=== PATIENT | female | born 1955 | race Caucasian/White ===

== ENCOUNTER → 2022-10-13 16:51 | Outpatient (BNVA) | payer OTHER, SELFPAY | PROVIDERS: PCP Family Medicine; Visit Provider Internal Medicine Cardiovascular Disease | DX: Z79.01 Long term (current) use of anticoagulants (principal); R00.2 Palpitations; R06.02 Shortness of breath | CPT/HCPCS: 36415; 80048; 84443; 85025 ==

== ENCOUNTER → 2022-10-14 09:52 | Outpatient (BNVA) | payer MEDICARE, SELFPAY | PROVIDERS: PCP Family Medicine; Visit Provider Internal Medicine Rheumatology | DX: M19.90 Unspecified osteoarthritis, unspecified site (principal); Z79.899 Other long term (current) drug therapy; M45.6 Ankylosing spondylitis lumbar region; Z11.59 Encounter for screening for other viral diseases; Z87.828 Personal history of other (healed) physical injury and trauma; Z84.0 Family history of diseases of the skin and subcutaneous tissue; M76.61 Achilles tendinitis, right leg; M76.62 Achilles tendinitis, left leg; M54.89 Other dorsalgia; Z11.1 Encounter for screening for respiratory tuberculosis | CPT/HCPCS: 72040; 72202; 73130; 73562; 73630; 99204 ==

== ENCOUNTER 2022-10-18 12:16 | Outpatient (CLI) | payer MEDICARE, SELFPAY ==
--- NOTE | 2022-10-18 12:15 | USCV_ITS ---
Patricia Charlton Age: 67 Gender: F : 1955 Exam Date: 10/18/2022 12:44 Ordering Phys: Esau Maher MD ([email or web address]) Technologist: ZAKIA Exam Location: [facility] [place] Indication: heart murmur BP: 157 / 97 HR: 50 Rhythm: Sinus Technical Quality: Adequate MEASUREMENTS (Male / Female) Normal Values 2D ECHO LV Diastolic Diameter PLAX 4.2 cm 4.2 - 5.9 / 3.9 - 5.3 cm LV Systolic Diameter PLAX 2.4 cm IVS Diastolic Thickness 0.8 cm 0.6 - 1.0 / 0.6 - 0.9 cm IVS Systolic Thickness 0.9 cm LVPW Diastolic Thickness 1.1 cm 0.6 - 1.0 / 0.6 - 0.9 cm LVPW Systolic Thickness 1.1 cm LVOT Diameter 2.0 cm LV Ejection Fraction 2D Teich 74.7 % LV Ejection Fraction MOD 2C 59.7 % LV Ejection Fraction 2C AL 58.9 % LA Diameter 3.2 cm LA Width 2.5 cm LA Height 4.3 cm RA Width 3.0 cm RA Height 4.2 cm Aorta at Sinotubular Diameter 2.4 cm IVC Diameter 1.4 cm M-MODE Aortic Annulus Diameter 2.7 cm LA Ao Ratio MM 1.1 MV E Point Septal Separation 0.6 cm DOPPLER AV Peak Velocity 151.0 cm/s LVOT Peak Velocity 121.0 cm/s AV Area Cont Eq vti 2.7 cm squared AV Area Cont Eq pk 2.5 cm squared MV Peak Velocity 75.0 cm/s MV Area PHT 6.3 cm squared Mitral E to A Ratio 1.1 MV E' Velocity 37.0 cm/s Mitral E to MV E' Ratio 6.6 Mitral E to LV E' Lateral Ratio 6.8 Mitral E to LV E' Septal Ratio 6.4 TR Peak Velocity 336.4 cm/s TR Peak Gradient 45.3 mmHg TR Mean Velocity 248.8 cm/s TR Mean Gradient 27.1 mmHg TR Velocity Time Integral 89.7 cm Right Atrial Pressure 3.0 mmHg Pulmonary Artery Systolic Pressu 48.3 mmHg PV Peak Velocity 93.0 cm/s RV Acceleration Time 0.2 s RV Ejection Time 0.3 s RV AcT/ET 0.5 FINDINGS Left Ventricle Normal left ventricular size and systolic function, EF 65 %. No regional wall motion abnormalities. Right Ventricle The right ventricle is normal in size and function. Right Atrium The right atrium is normal in size. Left Atrium The left atrium is normal in size. Mitral Valve Mild mitral valve regurgitation. Aortic Valve Trace to mild aortic valve regurgitation. Echodensity in the noncoronary cusp of the aortic leaflet Tricuspid Valve Mild tricuspid valve regurgitation. Pulmonic Valve No gross abnormalities noted Pericardium Normal pericardium without effusion. Aorta Normal ascending aorta dimension. IVC Normal inferior vena cava. CONCLUSIONS Normal left ventricular size and systolic function, EF 65 %. No regional wall motion abnormalities. Mild mitral valve regurgitation. Echodensity in the noncoronary cusp of the aortic leaflet, size calcified lesion Trace to mild aortic valve regurgitation. Mild mitral and tricuspid regurgitation Estimated pulmonary artery peak systolic pressure of 48 mmHg. There is no pericardial effusion. Dr Esau Maher MD FAC (Electronically Signed) Final Date: 19 October 2022 00:14 S
== END 2022-10-18 12:17 | disposition home or self-care (01) ==
PROVIDERS: PCP Family Medicine; Visit Provider Internal Medicine Cardiovascular Disease
DX: R01.1 Cardiac murmur, unspecified (principal); I08.3 Combined rheumatic disorders of mitral, aortic and tricuspid valves; Z79.899 Other long term (current) drug therapy; M19.90 Unspecified osteoarthritis, unspecified site; Z11.59 Encounter for screening for other viral diseases; M45.6 Ankylosing spondylitis lumbar region
CPT/HCPCS: 73130; 80076; 82306; 85651; 86140; 86431; 86704; 87340; 93306

== ENCOUNTER → 2022-11-29 10:18 | Outpatient (BNVA) | payer MEDICARE, SELFPAY | PROVIDERS: PCP Family Medicine; Visit Provider Internal Medicine Rheumatology | DX: M19.90 Unspecified osteoarthritis, unspecified site (principal); Z79.899 Other long term (current) drug therapy | CPT/HCPCS: 80076; 82565; 85025; 86140 ==

== ENCOUNTER → 2022-12-09 13:06 | Outpatient (BNVA) | payer MEDICARE, SELFPAY | PROVIDERS: PCP Family Medicine; Visit Provider Internal Medicine Rheumatology | DX: M19.90 Unspecified osteoarthritis, unspecified site (principal); M54.89 Other dorsalgia; Z87.828 Personal history of other (healed) physical injury and trauma; M76.62 Achilles tendinitis, left leg; M05.79 Rheumatoid arthritis with rheumatoid factor of multiple sites without organ or systems involvement; M54.9 Dorsalgia, unspecified | CPT/HCPCS: 72072; 99214 ==

== ENCOUNTER 2022-12-30 10:18 | Outpatient (CLI) | payer MEDICARE, SELFPAY ==
--- NOTE | 2022-12-30 10:15 | MR_ITS ---
WS: [id number] MRI THORACIC SPINE noncontrast. HISTORY: M54.9 - Dorsalgia, unspecified COMPARISON: None available. TECHNIQUE: Multiplanar sequences are performed in sagittal and axial planes. Moderate increase in the upper thoracic kyphosis. Disc spaces are moderately narrowed throughout the thoracic spine. Small hypertrophic endplate osteophytes. No fractures or marrow edema. Signal within the cord is normal. No central disc protrusion with significant encroachment upon the thecal sac. There is mild facet ferdinand nt arthritis and ligamentum flavum arthritis beginning at the T5 level. No high-grade foraminal steno sis. MR/MR thoracic spin wo con* [id number] IMPRESSION: 1. No thoracic spine compression fractures. 2. Moderate increase in upper thoracic kyphosis. 3. No central disc protrusions or high-grade stenosis. 4. No cord compression.
== END 2022-12-30 10:19 | disposition home or self-care (01) ==
PROVIDERS: PCP Family Medicine; Visit Provider Internal Medicine Rheumatology
DX: M54.6 Pain in thoracic spine (principal); G89.29 Other chronic pain; M40.204 Unspecified kyphosis, thoracic region
CPT/HCPCS: 72146

== ENCOUNTER → 2023-01-27 16:10 | Outpatient (BNVA) | payer MEDICARE, SELFPAY | PROVIDERS: Visit Provider Specialist | DX: R07.9 Chest pain, unspecified (principal); R00.2 Palpitations | CPT/HCPCS: 99214 ==

== ENCOUNTER 2023-01-28 06:00 | Outpatient (RCR) | payer MEDICARE, SELFPAY | END 2023-02-04 23:59 | disposition home or self-care (01) | LOC: GPT 06:00 | PROVIDERS: Visit Provider Internal Medicine Rheumatology | DX: M54.6 Pain in thoracic spine (principal) | CPT/HCPCS: 97110; 97140; 97161 ==

== ENCOUNTER 2023-02-05 06:00 | Outpatient (RCR) | payer MEDICARE, SELFPAY | END 2023-03-07 23:59 | disposition home or self-care (01) | LOC: GPT 06:00 | PROVIDERS: PCP Family Medicine; Visit Provider Internal Medicine Rheumatology | DX: M54.9 Dorsalgia, unspecified (principal) | CPT/HCPCS: 97110; 97112; 97140 ==

== ENCOUNTER 2023-03-08 06:00 | Outpatient (RCR) | payer MEDICARE, SELFPAY | END 2023-03-31 23:59 | disposition home or self-care (01) | LOC: GPT 06:00 | PROVIDERS: PCP Family Medicine; Visit Provider Internal Medicine Rheumatology | DX: M54.9 Dorsalgia, unspecified (principal) | CPT/HCPCS: 97110; 97164 ==

== ENCOUNTER 2023-03-08 08:55 | Outpatient (CLI) | payer MEDICARE, SELFPAY ==
[2023-03-08 10:01] VITALS: BMI 28.3
--- NOTE | 2023-03-08 10:02 | ECG_ITS ---
[facility] Test Date: 2023-03-08 Pat Name: Patricia Charlton Department: Room: Gender: Female Retail Presentation Specialist: : 1955 Requested By: Nikhil Guzman Order Number: [id number] Myles MD: Esau Maher M.D. Interpretive Statements NAME OF STUDY: LEXISCAN SESTAMIBI STRESS TEST INDICATION: Chest Pain, PROCEDURE: At the baseline, the EKG revealed normal sinus rhythm with a poor R wave progression. Some nonspecific T wave changes. The baseline heart was 60 bpm with a blood pressue of 148/79 mm of Hg Lexiscan was infused over a period of 20 seconds. A total of 0.4 milligrams of Lexiscan was infused. The stress phase was continued for a total of 5 minutes. Heart rate at the end of the stress phase was 87 bpm with a blood pressure 151/79 mm of Hg. The EKG at the peak infusion revealed tachycardia induced bundle branch block, left bundle branch block morphology. As the heart rate started coming down, the bundle branch block disappeared. Some nonspecific ST-T changes were noted Sestamibi was injected 20 seconds after the Lexiscan infusion. Heart rate at the end of the recovery phase was 81 bpm with a blood pressure of 153/78 mm of Hg. CONCLUSION: 1. Nonspecific ST-T changes with the Lexiscan infusion. Rate related bundle branch block also was noted 2. No LexiScan induced chest pain or cardiac arrhythmia 3. Normal blood pressure and heart rate response 4. Sestamibi/sestamibi perfusion scan pending; see separate report. Electronically Signed On 03-18-2023 10:02:26 CDT by Esau Maher M.D. [email or web address]
--- NOTE | 2023-03-08 10:03 | NMCV_ITS ---
NM radha perf SPECT r/s* [id number] Patricia Charlton Age: 67 Gender: F : 1955 Exam Date: 03/08/2023 10:20 Ordering Phys: Nikhil Guzman MD ([email or web address]) Technologist: TAPAN Hooker Exam Location: [facility] [place] Indications: CHEST PAIN STRESS TEST [facility] IMAGE PROTOCOL Rest/Stress 1 Day Radiopharmaceutical Dose (mCi) Administration Site Administered by Rest: Tc-99m 11.0 IV TAPAN Osuna Sestamibi Stress:Tc-99m 32.4 IV TAPAN Osuna Sestamibi Rest: 08-Mar-2023 60 Discovery 630 Stress: 08-Mar-2023 30 Discovery 630 0.4mg Lexiscan. Images obtained in supine and prone position. SPECT RESULTS Technical Quality: Excellent Raw Data Analysis: Normal Image Corrections: No attenuation or motion correction applied Summed Stress Score: 0 Summed Rest Score: 4 Summed Difference Score: 0 PERFUSION FINDINGS Fairly uniform myocardial tracer uptake with no significant perfusion abnormalities FUNCTIONAL RESULTS (calculated via Gated SPECT) Stress Image LV EF (%): 77 Stress EDV (mL):77 TID: 1.31 Stress ESV (mL):18 FUNCTIONAL FINDINGS: Segmental wall motion analysis revealing no gross wall motion abnormalities. The transient ischemic dilatation ratio of 1.3 IMPRESSIONS 1. Fairly uniform myocardial tracer uptake with no significant perfusion abnormalities. 2. Normal LV ejection fraction 77%. 3. LV wall motion analysis revealing no gross wall motion abnormalities. 4. Normal LV volume 5. Elevated transient ischemic dilatation ratio may suggest endocardial ischemia. However the positive predictive value of this finding is low especially in the absence of any other abnormal objective findings Dr Esau Maher MD FACC (Electronically Signed) Final Date: 08 March 2023 19:25 S
--- NOTE | 2023-03-08 10:04 | PC.NURSE ---
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
[2023-03-08] MEDS: regadenoson 0.4 Mg/5 ml Syringe IVP (10:57)
[2023-03-08 11:47] VITALS: BP 153/78; PULSE 77
== END 2023-03-08 08:56 | disposition home or self-care (01) ==
LOC: CDL 08:56
PROVIDERS: PCP Family Medicine; Visit Provider Specialist
DX: R07.9 Chest pain, unspecified (principal); R00.2 Palpitations
CPT/HCPCS: 36415; 78452; 93017; 96374; A9500; J2785

== ENCOUNTER 2023-03-10 12:02 | Outpatient (CLI) | payer MEDICARE, SELFPAY ==
[2023-03-10 12:54] LABS: Basophils # 0.1 10^3/uL (0.0-0.1); Basophils % 1.2 %; Eosinophils # 0.1 10^3/uL (0.0-0.8); Eosinophils % 2.3 %; Hematocrit 36.6 % (37.0-47.0); Hemoglobin 11.7 g/dL (11.5-15.3); Lymphocytes # 1.8 10^3/uL (0.8-4.8); Mean Corpuscular Volume 90.8 fl (81-99); Mean Platelet Volume 10.3 fL (7.4-10.4); Monocytes # 0.7 10^3/uL (0.2-0.9); Monocytes % 10.8 %; Neutrophils # 3.41 10^3/uL (1.8-7.7); Neutrophils % 56.4 %; Nucleated Red Blood Cells % 0 %; Platelet Count 264 10^3/cmm (130-400); Red Blood Count 4.03 10^6/uL (4.1-5.3); Red Cell Distribution Width 14.2 % (12.1-15.1)
[2023-03-10 13:27] LABS: Alanine Aminotransferase 19 U/L (0-33); Alkaline Phosphatase 40 U/L (35-105); Aspartate Amino Transferase 23 U/L (0-32); Globulin 2.6 g/dL (1.3-4.6); Glomerular Filtration Rate 100.3 mL/min (90-130); Total Bilirubin 0.2 mg/dL (0.15-1.2); Total Protein 6.6 g/dL (6.6-8.7)
[2023-03-11 14:33] LABS: Hepatitis B Virus DNA NOT DETECTED (NOT DETECTED); Hepatitis B Virus DNA PCR NOT DETECTED Log IU/mL (NOT DETECTED)
== END 2023-03-10 12:03 | disposition home or self-care (01) ==
PROVIDERS: PCP Family Medicine; Visit Provider Internal Medicine Rheumatology
DX: M54.89 Other dorsalgia (principal); Z79.899 Other long term (current) drug therapy; R76.8 Other specified abnormal immunological findings in serum
CPT/HCPCS: 36415; 80076; 82565; 85025; 87517; 99214

== ENCOUNTER → 2023-05-17 13:39 | Outpatient (BNVA) | payer MEDICARE, SELFPAY | PROVIDERS: PCP Family Medicine; Visit Provider Podiatrist Foot & Ankle Surgery | DX: L60.0 Ingrowing nail (principal); L60.3 Nail dystrophy; B35.1 Tinea unguium | CPT/HCPCS: 99203 ==

== ENCOUNTER 2023-05-17 14:17 | Outpatient (CLI) | payer MEDICARE, SELFPAY ==
[2023-05-17 14:49] LABS: Basophils # 0.1 10^3/uL (0.0-0.1); Basophils % 0.9 %; Eosinophils # 0.1 10^3/uL (0.0-0.8); Eosinophils % 1.8 %; Hematocrit 38.7 % (36-47); Lymphocytes # 1.8 10^3/uL (0.8-4.8); Lymphocytes % 32.2 %; Mean Corpuscular Hemoglobin 27.9 pg (27-33); Mean Platelet Volume 10.8 fL (7.4-10.4); Monocytes # 0.6 10^3/uL (0.2-0.9); Monocytes % 10.5 %; Neutrophils # 2.96 10^3/uL (1.8-7.7); Neutrophils % 54.4 %; Nucleated Red Blood Cells % 0 %; Platelet Count 200 10^3/cmm (157-399); Red Blood Count 4.45 10^6/uL (3.85-5.65); Red Cell Distribution Width 13.4 % (12.1-15.1); White Blood Count 5.44 10^3/uL (3.29-11.43)
[2023-05-17 16:21] LABS: Alanine Aminotransferase 14 U/L (0-33); Albumin Level 4.2 g/dL (3.5-5.2); Alkaline Phosphatase 40 U/L (35-105); Aspartate Amino Transferase 19 U/L (0-32); Globulin 2.9 g/dL (1.3-4.6); Total Bilirubin 0.2 mg/dL (0.15-1.2); Total Protein 7.1 g/dL (6.6-8.7)
== END 2023-05-17 14:18 | disposition home or self-care (01) ==
LOC: LAB 14:19
PROVIDERS: PCP Family Medicine; Visit Provider Internal Medicine Rheumatology
DX: M05.79 Rheumatoid arthritis with rheumatoid factor of multiple sites without organ or systems involvement (principal); Z79.899 Other long term (current) drug therapy
CPT/HCPCS: 80076; 82565; 85025; 86140

== ENCOUNTER → 2023-06-16 09:36 | Outpatient (BNVA) | payer MEDICARE, SELFPAY | PROVIDERS: PCP Family Medicine; Visit Provider Podiatrist Foot & Ankle Surgery | DX: L60.3 Nail dystrophy; B35.1 Tinea unguium | CPT/HCPCS: 99213 ==

== ENCOUNTER → 2023-08-09 14:43 | Outpatient (BNVA) | payer MEDICARE, SELFPAY | PROVIDERS: PCP Family Medicine; Visit Provider Physician Assistant | DX: M54.6 Pain in thoracic spine (principal); M47.812 Spondylosis without myelopathy or radiculopathy, cervical region | CPT/HCPCS: 72040; 72072; 99203 ==

== ENCOUNTER 2023-09-01 12:15 | Outpatient (CLI) | payer MEDICARE, SELFPAY ==
--- NOTE | 2023-09-01 12:15 | MR_ITS ---
WS: [id number] MRI CERVICAL SPINE NONCONTRAST HISTORY: cervical pain COMPARISON: None available. Technique: Multiplanar, multisequence noncontrast imaging of the cervical spine. Normal cervical alignment with no compression fracture or significant disc space narrowing. Signal within the cervical cord is normal. Visualized posterior fossa is unremarkable. Craniocervical junction, C1 and C2 relationship, odontoid process and soft tissues are normal. C2-C3: Normal. C3-C4: Mild osteophytic ridging with mild encroachment into the foramina. No high-grade stenosis. C4-C5: Mild osteophytic ridging. Mild bilateral facet arthritis. There is mild disc encroachment upon the ventral thecal sac. Mild central and bilateral foraminal stenosis. C5-C6: Moderate annular disc bulging with a central disc protrusion. Mild osteophytic ridging and fac et arthritis. Disc osteophyte encroachment causing mild central and LEFT foraminal stenosis. Moderate RIGHT foraminal stenosis. C6-C7: Mild osteophytic ridging and disc bulging. Mild encroachment upon the ventral thecal sac. Mild bilateral foraminal stenosis. C7-T1: Normal. Paraspinal soft tissue are normal. IMPRESSION: 1. No fractures or signal abnormality in the cord. 2. C5-6: Moderate RIGHT foraminal stenosis with mild central and LEFT foraminal stenosis due to disc and osteophyte and facet disease. 3. C4-5: Mild central and bilateral foraminal stenosis. Stenosis due to a central disc protrusion an d osteophytes. 4. Mild central and bilateral foraminal stenosis at C6-7.
== END 2023-09-01 12:16 | disposition home or self-care (01) ==
LOC: RAD 12:15
PROVIDERS: PCP Family Medicine; Visit Provider Physician Assistant
DX: M54.9 Dorsalgia, unspecified (principal); M05.79 Rheumatoid arthritis with rheumatoid factor of multiple sites without organ or systems involvement; M19.90 Unspecified osteoarthritis, unspecified site; Z87.828 Personal history of other (healed) physical injury and trauma; M76.61 Achilles tendinitis, right leg; M76.62 Achilles tendinitis, left leg; Z84.0 Family history of diseases of the skin and subcutaneous tissue; Z79.899 Other long term (current) drug therapy; M48.02 Spinal stenosis, cervical region
CPT/HCPCS: 72141; 99214

== ENCOUNTER → 2023-09-05 11:19 | Outpatient (BNVA) | payer MEDICARE, SELFPAY | PROVIDERS: PCP Family Medicine; Visit Provider Internal Medicine Cardiovascular Disease | DX: R00.2 Palpitations (principal); I44.7 Left bundle-branch block, unspecified; R03.0 Elevated blood-pressure reading, without diagnosis of hypertension; Z87.891 Personal history of nicotine dependence | CPT/HCPCS: 99213 ==

== ENCOUNTER → 2023-09-23 11:29 | Outpatient (BNVA) | payer MEDICARE, SELFPAY | PROVIDERS: PCP Family Medicine; Visit Provider Orthopaedic Surgery | DX: M48.02 Spinal stenosis, cervical region | CPT/HCPCS: 99214 ==

== ENCOUNTER → 2023-11-30 12:52 | Outpatient (BNVA) | payer MEDICARE, SELFPAY | PROVIDERS: PCP Family Medicine; Visit Provider Internal Medicine Rheumatology | DX: M05.79 Rheumatoid arthritis with rheumatoid factor of multiple sites without organ or systems involvement (principal); M19.90 Unspecified osteoarthritis, unspecified site; Z87.828 Personal history of other (healed) physical injury and trauma; Z84.0 Family history of diseases of the skin and subcutaneous tissue; M76.61 Achilles tendinitis, right leg; M76.62 Achilles tendinitis, left leg; M54.9 Dorsalgia, unspecified | CPT/HCPCS: 36415; 80076; 82565; 85025; 86140; 99214 ==

== ENCOUNTER → 2023-12-05 09:00 | Outpatient (BNVA) | payer MEDICARE, SELFPAY | PROVIDERS: PCP Family Medicine; Visit Provider Anesthesiology Pain Medicine | DX: M47.812 Spondylosis without myelopathy or radiculopathy, cervical region; M48.02 Spinal stenosis, cervical region | CPT/HCPCS: 99204 ==

== ENCOUNTER → 2024-03-06 11:45 | Outpatient (BNVA) | payer MEDICARE, SELFPAY | PROVIDERS: PCP Family Medicine; Visit Provider Internal Medicine Cardiovascular Disease | DX: I47.10 Supraventricular tachycardia, unspecified (principal); R00.2 Palpitations; I44.7 Left bundle-branch block, unspecified; I10 Essential (primary) hypertension; R01.1 Cardiac murmur, unspecified; Z87.891 Personal history of nicotine dependence | CPT/HCPCS: 99214 ==

== ENCOUNTER → 2024-08-14 11:41 | Outpatient (BNVA) | payer MEDICARE, SELFPAY | PROVIDERS: PCP Family Medicine; Visit Provider Internal Medicine Rheumatology | DX: M05.79 Rheumatoid arthritis with rheumatoid factor of multiple sites without organ or systems involvement (principal); Z79.899 Other long term (current) drug therapy; M19.90 Unspecified osteoarthritis, unspecified site; Z87.828 Personal history of other (healed) physical injury and trauma; Z84.0 Family history of diseases of the skin and subcutaneous tissue; M76.61 Achilles tendinitis, right leg; M76.62 Achilles tendinitis, left leg; M54.9 Dorsalgia, unspecified | CPT/HCPCS: 36415; 80076; 82306; 82565; 84439; 84443; 84480; 84481; 85025; 85651; 86140; 99214 ==

== ENCOUNTER → 2024-09-11 10:29 | Outpatient (BNVA) | payer MEDICARE, SELFPAY | PROVIDERS: PCP Family Medicine; Visit Provider Orthopaedic Surgery | DX: M54.9 Dorsalgia, unspecified (principal) | CPT/HCPCS: 72072; 99213 ==

== ENCOUNTER → 2024-09-24 10:37 | Outpatient (BNVA) | payer MEDICARE, SELFPAY | PROVIDERS: PCP Family Medicine; Visit Provider Anesthesiology Pain Medicine | DX: M47.812 Spondylosis without myelopathy or radiculopathy, cervical region (principal); M54.9 Dorsalgia, unspecified | CPT/HCPCS: 99214 ==

== ENCOUNTER → 2024-10-01 14:57 | Outpatient (BNVA) | payer MEDICARE, SELFPAY | PROVIDERS: PCP Family Medicine; Visit Provider Anesthesiology Pain Medicine | DX: M79.18 Myalgia, other site (principal); M54.9 Dorsalgia, unspecified; M54.2 Cervicalgia; M47.812 Spondylosis without myelopathy or radiculopathy, cervical region | CPT/HCPCS: 20553; 99214; J1010; J3490 ==

== ENCOUNTER → 2024-10-05 10:23 | Outpatient (BNVA) | payer MEDICARE, SELFPAY | PROVIDERS: PCP Family Medicine; Visit Provider Nurse Practitioner Family | DX: R00.2 Palpitations (principal); I10 Essential (primary) hypertension; I44.7 Left bundle-branch block, unspecified; I47.10 Supraventricular tachycardia, unspecified; Z87.891 Personal history of nicotine dependence | CPT/HCPCS: 99213 ==

== ENCOUNTER 2024-11-07 13:51 | Outpatient (CLI) | payer MEDICARE, SELFPAY ==
--- NOTE | 2024-11-07 13:55 | XR_ITS ---
WS: [id number] DEXA (DUAL ENERGY X-RAY ABSORPTIOMETRY) Bone mineral density was performed using a [employer] machine. HISTORY: OTHER SPECIFIED DISORDERS OF BONE DENSITY AND STRUCTURE COMPARISON: None available. Lumbar spine BMD (L1-L4): 1.117 g/cm2 T score: -0.5 Z score: 1.1 Total hip BMD: Left: 0.914 g/cm2. T score: -0.7 Z score: 0.6 Right: 0.925 g/cm2. T score: -0.7 Z score: 0.7 10 year probability of a major osteoporotic fracture is 11.2%. XR/XR DEXA axial skeleton* [id number] IMPRESSION: NORMAL BONE MINERAL DENSITY based upon the WHO classification for females.
--- NOTE | 2024-11-07 13:58 | XR_ITS ---
WS: [email or web address] XR hand LT min 3V* [id number] REASON FOR EXAM: pain in left hand FINDINGS: No fracture or focal bone lesion. No periosteal reaction. Moderate narrowing with moderate subchondral sclerosis and osteophytosis in the DIP and PIP joints of the second through the fifth fingers. Similar arthropathic change in the DIP and MCP joint of the thumb. Similar but more severe arthropathy in the carpal metacarpal joint of the thumb. Calcification near the medial aspect of the distal portion of the third proximal phalanx. Most likely calcified Kadie's node. XR/XR hand LT min 3V* [id number] IMPRESSION: Significant osteoarthritis of the right hand as above.
--- NOTE | 2024-11-07 13:59 | XR_ITS ---
WS: [email or web address] XR shoulder LT min 2V* [id number] REASON FOR EXAM: LEFT SHOULDER PAIN FINDINGS: No fracture or focal bone lesion. Moderate narrowing of the acromioclavicular joint space with moderate subchondral sclerosis and minimal osteophytosis. The glenohumeral joint is not optimally visualized. There may be mild narrowing. There is minimal subchondral sclerosis in the glenoid. Minimal osteophytosis of the humeral head. Minimal sclerosis in the greater biceps tuberosity. XR/XR shoulder LT min 2V* [id number] IMPRESSION: Mild osteoarthritis in the acromioclavicular and glenohumeral joints. Minimal rotator cuff tendon arthropathy.
== END 2024-11-07 13:52 | disposition home or self-care (01) ==
PROVIDERS: PCP Family Medicine; Visit Provider Nurse Practitioner Family
DX: M85.88 Other specified disorders of bone density and structure, other site (principal); M19.012 Primary osteoarthritis, left shoulder; R93.7 Abnormal findings on diagnostic imaging of other parts of musculoskeletal system; M19.042 Primary osteoarthritis, left hand
CPT/HCPCS: 73030; 73130; 77080

== ENCOUNTER → 2025-01-23 08:37 | Outpatient (BNVA) | payer MEDICARE, SELFPAY | PROVIDERS: PCP Family Medicine; Visit Provider Internal Medicine Rheumatology | DX: M05.79 Rheumatoid arthritis with rheumatoid factor of multiple sites without organ or systems involvement (principal); M19.90 Unspecified osteoarthritis, unspecified site | CPT/HCPCS: 80076; 82565; 85025; 85651; 86140 ==

== ENCOUNTER → 2025-03-26 13:32 | Outpatient (BNVA) | payer MEDICARE, SELFPAY | PROVIDERS: PCP Family Medicine; Visit Provider Internal Medicine Rheumatology | DX: M19.90 Unspecified osteoarthritis, unspecified site (principal); Z87.828 Personal history of other (healed) physical injury and trauma; Z84.0 Family history of diseases of the skin and subcutaneous tissue; M76.61 Achilles tendinitis, right leg; M76.62 Achilles tendinitis, left leg; M05.79 Rheumatoid arthritis with rheumatoid factor of multiple sites without organ or systems involvement; M54.9 Dorsalgia, unspecified | CPT/HCPCS: 99214 ==

== ENCOUNTER → 2025-04-23 15:29 | Outpatient (BNVA) | payer MEDICARE, SELFPAY | PROVIDERS: PCP Family Medicine; Visit Provider Internal Medicine Cardiovascular Disease | DX: I47.10 Supraventricular tachycardia, unspecified (principal); R00.2 Palpitations; I44.7 Left bundle-branch block, unspecified; I10 Essential (primary) hypertension; I08.0 Rheumatic disorders of both mitral and aortic valves | CPT/HCPCS: 99214 ==

== ENCOUNTER 2025-08-06 11:17 | Outpatient (CLI) | payer MEDICARE, SELFPAY ==
--- NOTE | 2025-08-06 11:29 | MM_ITS ---
WS: [email or web address] BILATERAL 3D TOMOSYNTHESIS DIGITAL SCREENING MAMMOGRAPHY WITH CAD CLINICAL INFORMATION: SCREENING MAMMOGRAM HISTORY: Screening mammogram. No current complaints. COMPARISON: 2023 TECHNIQUE: Bilateral CC and MLO views. FINDINGS: The breasts are composed of heterogeneous fibroglandular density tissue, which can limit the detection of small underlying mass lesions. No suspicious mass, asymmetry, calcifications, or architectural distortion. No evidence of malignancy. Incidental punctate calcifications. MM/MM [facility] tomosynthesis [id number] IMPRESSION: DENSITY: The breasts are heterogeneously dense, which may obscure small masses. BI-RADS: 2 - Benign FOLLOW UP: 1 Year Follow-up Recommend return to annual screening mammography.
== END 2025-08-06 11:18 | disposition home or self-care (01) ==
LOC: RAD 11:18
PROVIDERS: PCP Family Medicine; Visit Provider Family Medicine
DX: Z12.31 Encounter for screening mammogram for malignant neoplasm of breast (principal); R92.333 Mammographic heterogeneous density, bilateral breasts; R92.323 Mammographic fibroglandular density, bilateral breasts; R92.1 Mammographic calcification found on diagnostic imaging of breast
CPT/HCPCS: 77063; 77067